=== PATIENT | male | born 1995 | race Caucasian/White ===

== ENCOUNTER → 2016-11-27 | Outpatient (CLI) | payer BC ==
[~2016-11-27] MED LIST: CETI10TA84 PO; MNC50 PO; MOME50SP5; SNGCH5 PO
[2016-11-27 09:28] LABS: HEMATOCRIT 45.4 % (42-52)
[2016-11-27 09:38] LABS: ALT/SGPT 23 U/L (12-78); BLOOD UREA NITROGEN 11 mg/dl (7-18); BUN/CREATININE RATIO 9.5 (10-20); CALCIUM 9.5 mg/dl (8.5-10.1); CARBON DIOXIDE 31 mmol/L (21-32); CHLORIDE 105 mmol/L (98-107); CHOLESTEROL 143 mg/dl (0-200); GLUCOSE 259 mg/dl (70-99); SODIUM 140 mmol/L (136-145); TRIGLYCERIDES 88 mg/dl (0-150); VERY LOW DENSITY LIPOPROT CALC 18 mg/dl
[2016-11-27 09:43] LABS: ESTIMATED AVERAGE GLUCOSE 169 mg/dl; HA1C FLAG Normal (Normal)
[2016-11-27 09:46] LABS: ALB/GLOB RATIO 1.2 (0.9-2); ALKALINE PHOSPHATASE 82 U/L (45-117); AST/SGOT 10 U/L (15-37); HDL CHOLESTEROL 47 mg/dl; LDL CHOLESTEROL CALCULATED 78 mg/dl
[2016-12-01 14:12] LABS: ILGF1 Z SCORE MALE -0.3 SD (-2.0 - +2.0); INSULIN LIKE GROWTH FACTOR-I 204 ng/mL (83-456); MICROSOMAL AB <1 IU/ML (<9)
--- NOTE | 2016-12-03 14:06 | CODING QUERY MEDICAL NECESSITY ---
cqSUPPORTING DIAGNOSIS NEEDED A supporting diagnosis is required for the test/procedure performed on this patient in order for us to be reimbursed by the patient's insurance. Please provide a supporting diagnosis for the following test/procedure listed below next to the test name along with your signature. *If there is no additional diagnosis for this patient that would support the following test/procedure please document that below next to the test/procedure. Test(s)/Procedure(s) that require a supporting diagnosis: DOS 11/27/16 VITAMIN D TEST VITAMIN B12 TEST Provider Signature: Date: Thank you Lola Ocon[facility] Once completed, please kindly fax back to [phone] For questions please call [phone] [place]
== END | disposition home or self-care (01) ==
LOC: C.LAB1850 06:58
PROVIDERS: ATTEND Internal Medicine Endocrinology, Diabetes & Metabolism
DX: E10.9 Type 1 diabetes mellitus without complications (principal); S09.90XA Unspecified injury of head, initial encounter; X58.XXXA Exposure to other specified factors, initial encounter; E23.2 Diabetes insipidus

== ENCOUNTER → 2017-08-07 | Outpatient (CLI) | payer OTHER ==
--- NOTE | 2017-08-07 10:33 | DIAGNOSTIC IMAGING REPORT ---
(TESTICULAR) SCROTUM-CONT HISTORY: Mass LUMP ON LEFT COMPARISON: None. FINDINGS: Right testis: Maximum dimension 5.8 cm. Normal vascular flow. Normal echogenicity. Left testis: Maximum linear dimension 5.4 cm. No focal lesion. Normal vascular flow IMPRESSION: Normal study The above report was generated using voice recognition software. It may contain grammatical, syntax or spelling errors. Electronically signed by: Momo Dorman M.D. 08/07/2017 10:32 AM Dictated Date/Time: 08/07/2017 10:29 AM
== END | disposition home or self-care (01) ==
LOC: C.ULTR 09:32
PROVIDERS: ATTEND Family Medicine
DX: N50.812 Left testicular pain (principal)

== ENCOUNTER → 2017-10-10 | Outpatient (CLI) | payer OTHER ==
[2017-10-10 10:34] LABS: HEMOGLOBIN A1C 8.1 % (4.5-5.6)
[2017-10-10 10:39] LABS: ALBUMIN 3.9 gm/dl (3.4-5.0); ALT/SGPT 22 U/L (12-78); AST/SGOT 12 U/L (15-37); BLOOD UREA NITROGEN 16 mg/dl (7-18); CARBON DIOXIDE 29 mmol/L (21-32); CREATININE 1.15 mg/dl (0.60-1.40); GLUCOSE 286 mg/dl (70-99); POTASSIUM 3.7 mmol/L (3.5-5.1); SODIUM 138 mmol/L (136-145)
[2017-10-10 10:46] LABS: CREATININE RANDOM URINE 90.9 mg/dl
[2017-10-10 10:48] LABS: ALKALINE PHOSPHATASE 118 U/L (45-117); CHOLESTEROL 152 mg/dl (0-200); LDL CHOLESTEROL CALCULATED 83 mg/dl; TOTAL PROTEIN 7.9 gm/dl (6.4-8.2)
== END | disposition home or self-care (01) ==
LOC: C.LAB1850 08:12
PROVIDERS: ATTEND Internal Medicine Endocrinology, Diabetes & Metabolism
DX: E10.9 Type 1 diabetes mellitus without complications (principal)

== ENCOUNTER → 2018-01-15 | Outpatient (CLI) | payer OTHER ==
[2018-01-15 16:04] LABS: HEMOGLOBIN A1C 7.5 % (4.5-5.6)
== END | disposition home or self-care (01) ==
LOC: C.LABPVFM 10:35
PROVIDERS: ATTEND Internal Medicine Endocrinology, Diabetes & Metabolism
DX: E55.9 Vitamin D deficiency, unspecified (principal); Z96.41 Presence of insulin pump (external) (internal); E10.65 Type 1 diabetes mellitus with hyperglycemia